=== PATIENT | female | born 1985 | race Caucasian/White ===

== ENCOUNTER 2024-11-09 12:53 | Outpatient (CLI) | payer BC ==
[~2024-11-09 12:53] MED LIST: Iopamidol 300 61% 100 ML VIAL FS ONE
== END 2024-11-09 12:54 | disposition home or self-care (01) ==
LOC: CSHCT 12:53
PROVIDERS: ATTEND Surgery
DX: K86.1 Other chronic pancreatitis (principal); K86.89 Other specified diseases of pancreas
CPT/HCPCS: 74170; Q9967